=== PATIENT | male | born 1980 ===

== ENCOUNTER 2025-01-25 08:20 | Outpatient (REF) | payer OTHER, SELFPAY ==
[2025-01-25 15:32] LABS: HCT 44.9 % (40.0-50.0); HGB 15.1 g/dL (13.5-17.5); MCH 31.4 pg (27.0-33.0); MCHC 33.6 % (32.0-36.0); MCV 93 fL (80-95); MPV 10.6 fL (8.0-11.0); Platelet Count 212 10^3/uL (130-400); RBC 4.81 10^6/uL (4.36-5.78); RDW 11.6 % (11.8-14.1); RDW-SD 39.9 fL; WBC 5.48 10^3/uL (4.4-10.8)
[2025-01-25 15:53] LABS: Hemoglobin A1C 5.9 % (<5.7)
[2025-01-25 15:55] LABS: ALT 34 U/L (16-63); AST 24 U/L (15-37); Albumin 4.1 g/dL (3.4-5.0); Alkaline Phosphatase 115 U/L (46-116); Anion Gap 6.9 mmol/L (3-11); BUN 16 mg/dL (7-18); Bilirubin, Total 0.4 mg/dL (0.2-1.0); CO2 27.1 mmol/L (21.0-32.0); Calcium 9.2 mg/dL (8.5-10.1); Calculated LDL 170 mg/dL (<100); Chloride 106 mmol/L (98-107); Cholesterol 230 mg/dL (<200); Estimated GFR 94.59 (mL/min/1.73m2); Glucose 135 mg/dL (74-106); HDL Cholesterol 50 mg/dL (>or=40); Potassium 4.5 mmol/L (3.5-5.1); Sodium 140 mmol/L (136-145); Total Protein 7.4 g/dL (6.4-8.2); Triglyceride 53 mg/dL (<150)
== END 2025-01-25 08:21 | disposition home or self-care (01) ==
LOC: NCHCN 08:20
PROVIDERS: Visit Provider Physician Assistant
DX: Z00.00 Encounter for general adult medical examination without abnormal findings (principal); Z13.1 Encounter for screening for diabetes mellitus; Z13.220 Encounter for screening for lipoid disorders; Z13.6 Encounter for screening for cardiovascular disorders
CPT/HCPCS: 80053; 80061; 85027; 83036